=== PATIENT | female | born 2000 | race Caucasian/White ===

== ENCOUNTER 2024-03-25 22:31 | Emergency (ER) | payer SELFPAY ==
[2024-03-25 22:31] VITALS: BP 122/83; PULSE 52; RESP 16; TEMP 36.4; O2SAT 99; BMI 21.1
[2024-03-25 22:33] VITALS: BP 122/83; PULSE 52; RESP 16; TEMP 36.4; O2SAT 99
--- NOTE | 2024-03-25 22:44 | EDS_ITS ---
HPI History of Present Illness Chief Complaint: Cold Sx Informant: patient Onset/Context/Timing Onset: Today and Hours Context: Gradual Onset Current Severity: Mild Maximum Severity: Mild Narrative Narrative: 23-year-old female no significant past medical or surgical history. Currently on no medications. States she started having hot and cold chills about an hour ago. No vomiting or diarrhea. No dysuria. Currently on her most recent menstrual period now and her prior menstrual period was about 4 weeks ago and normal. She did not take her temperature at home. Prior similar symptoms: Yes Recent Illness/Hospitalization: No PFSH PFSH Medical History no medical history no medical history Home Medications ondansetron 4 mg disintegrating tablet 4 mg PO Q6H PRN nausea and vomiting #7 tabs 03/25/24 [Rx Last Taken Unknown] Allergy/AdvReac Type Severity Reaction Status Date / Time No Known Allergies Allergy Verified 03/25/24 22:31 Surgical History no surgical history no surgical history ROS ROS ED ROS Narrative Subjective really hot flashes and chills. No documented fever. Mild nausea. Review of Systems ROS Unobtainable: Denies due to encephalopathy Constitutional Constitutional ED: Reports chills, fever(s) and subjective Eyes Eyes: Denies blurry vision, change in vision or diplopia ENT ENT ED: Denies ear pain, rhinorrhea or sore throat Cardiovascular Cardiovascular: Denies chest pain, orthopnea, palpitations or racing heartbeat Respiratory/Chest Respiratory/Chest: Denies dyspnea, dyspnea on exertion or orthopnea Gastrointestinal Gastrointestinal: Reports nausea; Denies abdominal pain, constipation, diarrhea, melena or vomiting Genitourinary Genitourinary ED: Denies dysuria or hematuria Musculoskeletal Musculoskeletal: Denies arthralgias, back pain, myalgias or neck pain Integumentary Denies abscess, Abrasions or rash Neurologic Neurologic: Denies headache(s), paresthesias or weakness Psychiatric Psychiatric: Denies anxiety, depression, suicidal ideation or suicidal thoughts Endocrine Endocrinology: Denies cold intolerance, heat intolerance, polydipsia, polyphagia or polyuria Hematologic/Lymphatic Hematologic/Lymphatic: Reports none Allergic/Immunologic Allergic/Immunologic ED: Denies mouth swelling, tongue swelling, urticaria or other EXAM Physical Exam Narrative Exam Narrative: 23-year-old no acute distress vital signs stable afebrile. HEENT exam normal. Posterior pharynx normal. Moist and pink. No erythema. No exudate. TMs normal. Neck nontender. No meningismus. No lymphadenopathy. Full range of motion. Lungs clear to auscultation bilaterally. Heart regular rhythm no murmur. Chest wall and ribs nontender. Abdomen soft nontender. Back nontender. Moving all 4 extremities. Nontender. No edema. No cords. Normal range of motion. Normal strength. No track wall. Neurologically she is awake alert no focal motor deficits. Fingertip to nose within normal limits. No drift. Normal strength and sensation. NIH 0. Skin normal. No petechiae or purpura. No rashes. Const Vital Signs: 03/25/24 22:31 03/25/24 22:33 Temperature 97.6 F L 97.6 F L Temperature Source Oral Oral Pulse Rate 52 L 52 L Respiratory Rate 16 16 Blood Pressure 122/83 H 122/83 H Blood Pressure Mean 96 96 Pulse Ox 99 99 Positive well nourished and well developed; Negative for obese, cachectic, contractures or unkempt General Appearance ED: well developed and NAD; Negative for unkempt, cachectic, contractures, cyanotic, diaphoretic or pallor Nutritional Appearance: Negative for cachectic or obese HEENT Reports TM's clear and moist mucous membranes; Denies dry mucous membranes Negative for trauma or tenderness Tympanic Membrane ED: Yes TM's clear Mouth ED: No dry mucous membranes Mouth: No dry mucous membranes Eyes PERRL and EOMs intact bilaterally General Eye ED: Negative for pale conjunctiva, scleral icterus or other Neck no lymphadenopathy, supple and no JVD General: Negative for tenderness Lymph Lymphatic: Negative for other Chest Wall inspection of chest normal and palpation of chest normal Chest: Negative for other Resp normal respiratory effort and clear to auscultation bilaterally Effort and Inspection: Negative for retractions Auscultation: Negative for rales, rhonchi or wheezes Cardio regular rate, regular rhythm, S1 normal heart sound, S2 normal heart sound and no murmurs Palpation: Negative for palpable S3 or palpable S4 Rate: Negative for bradycardia or tachycardic Rhythm: Negative for abnormal rhythm GI normal to inspection, nondistended, normoactive bowel sounds, non-tender and non-distended Inspection: Negative for abdominal distention Auscultation: normoactive bowel sounds Palpation: soft; Negative for tender, guarding or rebound tenderness present Back/Spine no CVA tenderness General Back: Negative for CVA tenderness Cervical Spine: Negative for cervical spine tenderness Thoracic Spine / Upper Back: Negative for thoracic spinal tenderness or paraspi nal muscle tenderness Lumbar Spine / Lower Back: Negative for lumbar spinal tenderness Extremity normal to inspection General Extremety ED: Negative for edema, tenderness or other findings General Extremity: Negative for edema or other findings Neuro oriented x3 and CN's II-XII intact bilaterally Sensorium / Orientation: alert; Negative for orientation impaired, lethargic or stuporous Motor Exam: strength 5/5 throughout; Negative for general weakness or strength abnormal Psych mental status grossly normal Appearance: Negative for unkempt Attitude: No agitated Mood & Affect: Negative for depressed, anxious or tearful Skin no rashes or lesions noted, no wounds and skin turgor normal General Skin Exam: elasticity normal; Negative for jaundice or pallor Lesions: No lesion noted Rashes: No rashes noted Trauma: Negative for abrasion Wounds: Negative for wounds noted MDM MDM MDM Narrative Medical decision making narrative: 23-year-old female with a viral syndrome. Completely normal exam. Unremarkable vital signs. Exam normal and benign. Given a dose of Motrin here. Zofran for nausea. Will be discharged home. Suspect viral syndrome. I do not think she needs any imaging or testing. Her and her significant other are comfortable with the plan and being discharged home. History & Record Review Discussion w/independent historian: Patient and Family Discharge Plan Triage Chief Complaint: Cold Sx ED Provider: Ozzy Fraga Dx/Rx/DC Orders Clinical Impression: Viral syndrome Instructions: ED Viral Syndrome (Adult) Prescriptions: New ondansetron 4 mg tablet,disintegrating 4 mg PO Q6H PRN (Reason: nausea and vomiting) Qty: 7 0RF Rx Instructions: As needed for nausea. Primary Care Provider: Care Physician,No Primary Referrals: Farhana Romero [Non-Staff] - 1 Week if not improving Care Physician,No Primary [Primary Care Provider] - Activity Restrictions/Additional Instructions: Motrin and Tylenol for body aches. Plenty of fluids and rest. Zofran as needed for nausea. Follow-up if not improving or return if worse. Disposition Disposition: Home, Self Care
[2024-03-25 22:55] VITALS: PULSE 60; RESP 16; TEMP 37.1; O2SAT 96
[2024-03-25] MEDS: Ibuprofen 600 MG Tablet PO (22:56)
[2024-03-25] MEDS: Ondansetron ODT 4 MG Tablet PO (22:56)
== END 2024-03-25 23:08 | disposition home or self-care (01) ==
LOC: ED 23:05
PROVIDERS: Emergency Provider Emergency Medicine; Visit Provider Emergency Medicine
DX: B34.9 Viral infection, unspecified (principal); R11.0 Nausea
CPT/HCPCS: 99283